=== PATIENT | male | born 1955 | race Caucasian/White ===

== ENCOUNTER 2016-11-28 13:12 | Day surgery (SDC) | payer BC ==
[2016-11-28 13:38] VITALS: PULSE 47
[2016-11-28] MEDS ORDERED: TRIAMCINOLONE ACETONIDE 40 MG/ML SUS ONE (14:05)
[2016-11-28 14:26] VITALS: BP 132/78; RESP 20; TEMP 98.3; O2SAT 95
== END 2016-11-28 14:40 | disposition home or self-care (01) ==
LOC: SURG 13:12
PROVIDERS: ATTEND Nurse Anesthetist, Certified Registered
DX: M51.36 Other intervertebral disc degeneration, lumbar region (principal); M48.06 Spinal stenosis, lumbar region
CPT/HCPCS: 62323; 77003; J3300

== ENCOUNTER 2018-10-13 15:35 | Emergency (ER) | payer MEDICARE, OTHER ==
[2018-10-13] MEDS ORDERED: SODIUM CHLORIDE 0.9% 1000ML 1,000 ML IV ONE (16:55)
[2018-10-13 17:07] LABS: BASOPHILS % (AUTO) 1 % (0-3); EOSINOPHILS % (AUTO) 3 % (0-9); HEMATOCRIT 47 % (39-53); HEMOGLOBIN 15.3 gm/dl (13.5-17.7); LYMPHOCYTES % (AUTO) 15.5 % (10-50); MEAN CORPUSCULAR HEMOGLOBIN 29.7 pg (27.0-32.0); MEAN CORPUSCULAR HGB CONC 32.8 gm/dl (32.0-36.0); MEAN CORPUSCULAR VOLUME 91 fL (80-100); MONOCYTES % (AUTO) 7.5 % (0-12); NEUTROPHILS % (AUTO) 73.8 % (37-80)
[2018-10-13 17:15] LABS: CALCIUM 8.6 mg/dl (8.5-10.1); CARBON DIOXIDE 27.4 mEq/L (21-32); CREATININE 0.92 mg/dl (0.80-1.30); POTASSIUM 4.1 mMol/L (3.5-5.1)
[2018-10-13 18:18] LABS: APPEARANCE,URINE Clear; BILIRUBIN,URINE NEGATIVE (NEGATIVE); COLOR,URINE Yellow; GLUCOSE, URINE (UA) NEGATIVE (NEGATIVE); KETONES,URINE NEGATIVE (NEGATIVE); LEUKOCYTE ESTERASE ,URINE TRACE (NEGATIVE); NITRATE,URINE NEGATIVE (NEGATIVE); OCCULT BLOOD,URINE 2+ (NEG-TRACE); UROBILINOGEN,URINE 0.2 (0.2-1.0 EU)
[2018-10-13 18:29] LABS: BACTERIA 2+ (< 1+); CRYSTALS NEGATIVE (0-3 AVE/HPF); EPITHELIAL CELLS NEGATIVE (SQUAMOUS); RBC,URINE 20-25 (0-3AV/HPF); WBC,URINE 0-1 (0-5AV/HPF)
[2018-10-13] MEDS ORDERED: SULFAMETHOXAZOLE/TRIMETHOPRI 800/160 MG PO ONE (19:25)
[2018-10-13] MEDS ORDERED: SULFAMETHOXAZOLE/TRIMETHOPRI 800/160 MG ONE (19:25)
[2018-10-13] MEDS ORDERED: SODIUM CHLORIDE 0.9% FLUSH 10 ML SOL IV PRN (19:26)
[2018-10-13 19:48] VITALS: BP 154/81; PULSE 55; RESP 16; O2SAT 98
[2018-10-13 20:05] VITALS: TEMP 96.6
== END 2018-10-13 19:35 | disposition home or self-care (01) | DRG 700 ==
LOC: ED 15:35
DX: T83.098A Other mechanical complication of other urinary catheter, initial encounter (principal); R39.11 Hesitancy of micturition
CPT/HCPCS: 51798; 80048; 81001; 85025; 87088; 96365; 99282; 99285; A9270-GY